=== PATIENT | male | born 1985 | race Caucasian/White ===

== ENCOUNTER 2017-01-30 13:26 | Emergency (ER) | payer OTHER ==
[~2017-01-30] VITALS: Ht 177.8 cm; Wt 90.7 kg
[~2017-01-30 13:26] MED LIST: BACTRIM DS TABL1 TA1 PO; NO MEDICATIONS; PREDNISONE PO
== END 2017-01-30 16:15 | disposition home or self-care (01) ==
LOC: CED 13:26 → CFTX 13:26
DX: M43.6 Torticollis (principal); I10 Essential (primary) hypertension; Z88.1 Allergy status to other antibiotic agents; Z88.2 Allergy status to sulfonamides
CPT/HCPCS: 96372; 99283; J1885